=== PATIENT | male | born 1980 | race Caucasian/White ===

== ENCOUNTER 2025-09-13 06:19 | Emergency (ER) | payer MEDICAID ==
[~2025-09-13] VITALS: Ht 170.2 cm; Wt 68.6 kg
[2025-09-13 06:49] VITALS: TEMP 37.1; O2SAT 98
[2025-09-13] MEDS ORDERED: CETI-89 MT (07:13)
[2025-09-13] MEDS ORDERED: DEXAMETHASONE 1MG TABLET PO ONE (07:15)
[2025-09-13] MEDS ORDERED: LORATADINE 10MG TABLET PO NR (07:30)
[2025-09-13] MEDS: LORATADINE 10MG TABLET PO STA (07:33)
[2025-09-13] MEDS: DEXAMETHASONE 6MG TABLET PO SCH (07:33)
[2025-09-13] MEDS: DEXAMETHASONE 4MG TABLET PO SCH (07:33)
[2025-09-13 07:40] VITALS: BP 117/74; PULSE 68; RESP 15; O2SAT 100
== END 2025-09-13 07:42 | disposition home or self-care (01) ==
LOC: ER 06:47
DX: R21 Rash and other nonspecific skin eruption (principal); Z90.49 Acquired absence of other specified parts of digestive tract
CPT/HCPCS: 99284; J8540